=== PATIENT | female | born 1950 | race Two or more races ===

== ENCOUNTER → 2020-05-13 | Emergency (ER) | payer OTHER ==
[~2020-05-13] VITALS: Ht 165.1 cm; Wt 65.8 kg
[~2020-05-13] MED LIST: HYDROcodone-ACET 5/325MG TAB PO ONE; MORPHINE SULFATE 4 MG/ML SYR/VIAL IV ONE; ONDANSETRON HCL 4 MG/2 ML VIAL IV ONE; ONDANSETRON ODT 4 MG TAB PO ONE
[2020-05-14 01:09] LABS: Urine Bacteria FEW /hpf (None Seen); Urine Blood Negative /uL (Negative); Urine Specific Gravity 1.013 (1.001-1.035); Urine WBC 1 /hpf (0 - 5)
[2020-05-14 05:36] VITALS: BP 156/53
== END | disposition home or self-care (01) ==
LOC: EDUNIT# 21:55 → EDBD 22:19 → ER 22:22
DX: S82.001A Unspecified fracture of right patella, initial encounter for closed fracture (principal); I10 Essential (primary) hypertension; Z88.5 Allergy status to narcotic agent; Z88.6 Allergy status to analgesic agent; Z88.0 Allergy status to penicillin; Z88.8 Allergy status to other drugs, medicaments and biological substances; Z88.2 Allergy status to sulfonamides; X58.XXXA Exposure to other specified factors, initial encounter; Y93.89 Activity, other specified; Y92.89 Other specified places as the place of occurrence of the external cause; Y99.8 Other external cause status
CPT/HCPCS: 29505; 73562; 81001; 93005; 96374; 96375

== ENCOUNTER 2024-05-16 18:52 | Inpatient (IN) | payer OTHER ==
[~2024-05-16] VITALS: Ht 157.5 cm; Wt 65.5 kg
[2024-05-16] MEDS: ONDANSETRON ODT 4 MG TAB PO ONE (19:30)
[2024-05-16 20:03] LABS: Basophils # (auto) 0 10 ^3/uL (0-0.2); Basophils % (auto) 0.1 % (0.0-2.0); Eosinophils # (auto) 0 10 ^3/uL (0-0.8); Hematocrit 42.2 % (36.0-46.0); Hemoglobin 14.6 g/dL (12.2-16.2); Lymphocytes # (auto) 0.5 10 ^3/uL (0.4-5.4); Lymphocytes % (auto) 2.8 % (10.0-50.0); Mean Corpuscular Hemoglobin 30.7 pg (28.0-32.0); Mean Corpuscular Hgb Conc. 34.7 g/dL (32.0-36.0); Mean Corpuscular Volume 88.5 fL (80.0-100.0); Monocytes % (auto) 5.7 % (0.0-12.0); Neutrophils # (auto) 16.6 10 ^3/uL (1.6-8.6); Neutrophils % (auto) 91.4 % (37.0-80.0); Red Blood Cells 4.77 10^6/uL (4.0-5.20); Red Cell Distribution Width 12.9 % (11.8-14.3); White Blood Cell 18.2 10^3/uL (4.4-10.8)
[2024-05-16 20:13] LABS: Urine Bacteria None Seen /hpf (None Seen)
[2024-05-16 20:17] LABS: INR 1.03 (0.9-1.15); Partial Thromboplastin Time 28.4 SEC (24.5-34.5); Prothrombin Time 10.9 sec (9.3-11.8)
[2024-05-16 20:20] LABS: Alanine Aminotransferase 19 U/L (7-40); Albumin 4.8 g/dL (3.2-4.8); Alkaline Phosphatase 90 U/L (46-116); Anion Gap 10 (5-15); Aspartate Aminotransferase 17 U/L (13-40); BUN/Creatinine Ratio 17.1 (10.0-20.0); Blood Urea Nitrogen 13 mg/dL (9-23); Calcium 10.7 mg/dL (8.7-10.4); Carbon Dioxide 27 mmol/L (20-30); Chloride 99 mmol/L (98-107); Glucose 130 mg/dL (74-106); Lipase 23 U/L (12-53); Potassium 3.2 mmol/L (3.5-5.1); Sodium 136 mmol/L (136-145)
[2024-05-16 20:21] LABS: Bilirubin, Total 1.7 mg/dL (0.2-1.0); Total Protein 7.6 g/dL (5.7-8.2)
[2024-05-16] MEDS ORDERED: levoFLOXacin 500MG 100 ML IV ONE (20:30)
[2024-05-16] MEDS: metroNIDAZOLE 500MG/100ML 100 ML IV ONE (20:30)
[2024-05-16 20:35] LABS: Urine Blood 1+ /uL (Negative); Urine Clarity Clear (Clear); Urine Color Yellow (Yellow); Urine Mucus FEW (None Seen); Urine Protein, UAD TRACE (Negative); Urine Specific Gravity 1.023 (1.001-1.035); Urine Urobilinogen Normal (Negative); Urine WBC 1 /hpf (0 - 5); Urine pH 7.5 (5.0-9.0)
[2024-05-17] VITALS (9 sets, daily range): BP systolic 109–128; BP diastolic 65–76; PULSE 57–87; RESP 16–20; TEMP 97.6–98.4; O2SAT 92–98
[2024-05-17 05:12] LABS: Basophils # (auto) 0 10 ^3/uL (0-0.2); Basophils % (auto) 0.3 % (0.0-2.0); Eosinophils # (auto) 0 10 ^3/uL (0-0.8); Eosinophils % (auto) 0.1 % (0.0-7.0); Hematocrit 40.7 % (36.0-46.0); Hemoglobin 14.1 g/dL (12.2-16.2); Lymphocytes # (auto) 1.1 10 ^3/uL (0.4-5.4); Lymphocytes % (auto) 8.2 % (10.0-50.0); Mean Corpuscular Hemoglobin 30.9 pg (28.0-32.0); Mean Corpuscular Hgb Conc. 34.7 g/dL (32.0-36.0); Monocytes % (auto) 7.8 % (0.0-12.0); Neutrophils # (auto) 10.9 10 ^3/uL (1.6-8.6); Neutrophils % (auto) 83.6 % (37.0-80.0); Red Blood Cells 4.58 10^6/uL (4.0-5.20)
[2024-05-17 05:19] LABS: Chloride 102 mmol/L (98-107); Potassium 2.8 mmol/L (3.5-5.1); Sodium 138 mmol/L (136-145)
[2024-05-17 05:20] LABS: Anion Gap 7 (5-15); Carbon Dioxide 29 mmol/L (20-30)
[2024-05-17 05:21] LABS: Calcium 9.7 mg/dL (8.7-10.4)
[2024-05-17 05:25] LABS: BUN/Creatinine Ratio 16.5 (10.0-20.0); Blood Urea Nitrogen 13 mg/dL (9-23); Glucose 114 mg/dL (74-106)
[2024-05-17] MEDS: HYDROcodone-ACET 5/325MG TAB PO PRN (05:55)
[2024-05-17] MEDS: SODIUM CHLORIDE 0.9% 1,000 ML IV ONE (05:56)
[2024-05-17] MEDS: POTASSIUM EFFERVESENT TAB 25 MEQ PO ONE (08:45)
[2024-05-17] MEDS: ONDANSETRON HCL 4 MG/2 ML VIAL IV PRN (09:39)
[2024-05-17] MEDS: hydroCHLOROthiazide 25 MG TAB PO SCH (09:53)
[2024-05-17] MEDS: ATENOLOL 25 MG TAB PO SCH (09:53)
[2024-05-17] MEDS: ERTAPENEM SOD INJ 1 GM in SODIUM CHL 0.9% 50 ML IV SCH (10:00)
[2024-05-17] MEDS ORDERED: PATIENTS OWN MEDICATION (ertapenem 1 GM) IV SCH (10:00)
[2024-05-17] MEDS: POTASSIUM CHLORIDE 40 MEQ, LIDOCAINE 1% (LOCAL ANESTH.) 4 ML in SODIUM CHL 0.9% 250 ML IV ONE (10:30)
[2024-05-17] MEDS: DOCUSATE SOD 100 MG CAP PO ONE (10:30)
[2024-05-17] MEDS: metroNIDAZOLE 500MG/100ML 100 ML IV SCH (22:00)
[2024-05-17] MEDS: ACETAMINOPHEN 325 MG TAB PO PRN (22:44)
[2024-05-17] MEDS: DOCUSATE SOD 100 MG CAP PO SCH (22:44)
[2024-05-17] MEDS: POTASSIUM CHLORIDE 20 MEQ in D5W/LACTATED RINGERS 1,000 ML IV SCH (22:47)
[2024-05-18 01:00] VITALS: BP 123/54; PULSE 59; RESP 20; TEMP 97.4; O2SAT 96
[2024-05-18 05:00] VITALS: BP 97/65; PULSE 62; RESP 20; TEMP 98.2; O2SAT 94
[2024-05-18] MEDS ORDERED: metroNIDAZOLE 500 MG TAB PO SCH (06:00)
[2024-05-18 06:56] LABS: Anion Gap 5 (5-15); Calcium 9.6 mg/dL (8.7-10.4); Carbon Dioxide 29 mmol/L (20-30); Chloride 104 mmol/L (98-107); Potassium 3.7 mmol/L (3.5-5.1); Sodium 138 mmol/L (136-145)
[2024-05-18 07:00] LABS: Basophils # (auto) 0 10 ^3/uL (0-0.2); Basophils % (auto) 0.3 % (0.0-2.0); Eosinophils # (auto) 0.1 10 ^3/uL (0-0.8); Eosinophils % (auto) 0.7 % (0.0-7.0); Hematocrit 37.6 % (36.0-46.0); Hemoglobin 13.2 g/dL (12.2-16.2); Lymphocytes # (auto) 0.9 10 ^3/uL (0.4-5.4); Lymphocytes % (auto) 11.7 % (10.0-50.0); Mean Corpuscular Hemoglobin 31.4 pg (28.0-32.0); Mean Corpuscular Hgb Conc. 35.1 g/dL (32.0-36.0); Mean Corpuscular Volume 89.4 fL (80.0-100.0); Monocytes # (auto) 0.7 10 ^3/uL (0-1.3); Monocytes % (auto) 9.2 % (0.0-12.0); Neutrophils # (auto) 6.2 10 ^3/uL (1.6-8.6); Neutrophils % (auto) 78.1 % (37.0-80.0); Red Blood Cells 4.21 10^6/uL (4.0-5.20); Red Cell Distribution Width 13.2 % (11.8-14.3)
[2024-05-18 07:02] LABS: BUN/Creatinine Ratio 13.5 (10.0-20.0); Blood Urea Nitrogen 10 mg/dL (9-23); Glucose 91 mg/dL (74-106)
[2024-05-18 08:00] VITALS: PULSE 97; RESP 18; O2SAT 97
[2024-05-18] MEDS: metroNIDAZOLE 500 MG TAB PO SCH (10:00)
[2024-05-18] MEDS: LACTULOSE 20Gm/30ML SOLN PO ONE (10:00)
[2024-05-18 12:11] VITALS: BP 114/69; PULSE 59; RESP 20; TEMP 98.6; O2SAT 96
[2024-05-18 16:37] VITALS: BP 124/77; PULSE 65; RESP 20; TEMP 98.7; O2SAT 94
== END 2024-05-18 17:00 | disposition short-term general hospital (02) | DRG 872 ==
LOC: ER 18:52 → OVERFLOW 23:45 → CENTRAL 05-17 08:25
PROVIDERS: ADMIT Nurse Practitioner; ATTEND Internal Medicine
DX: A41.9 Sepsis, unspecified organism (principal); K57.32 Diverticulitis of large intestine without perforation or abscess without bleeding; E87.6 Hypokalemia; K59.00 Constipation, unspecified; K76.0 Fatty (change of) liver, not elsewhere classified; I10 Essential (primary) hypertension; Z82.62 Family history of osteoporosis; Z88.6 Allergy status to analgesic agent; Z88.1 Allergy status to other antibiotic agents; Z88.2 Allergy status to sulfonamides; Z88.8 Allergy status to other drugs, medicaments and biological substances; Z88.0 Allergy status to penicillin; Z88.3 Allergy status to other anti-infective agents; Z82.49 Family history of ischemic heart disease and other diseases of the circulatory system
CPT/HCPCS: 36415; 71045; 74176; 80048; 80053; 81001; 83690; 84484; 85025; 85610; 85730; 96360; 99291; G0378; J1335; J2001; J2405